=== PATIENT | male | born 1995 | race Two or more races ===

== ENCOUNTER 2019-07-24 17:36 | Emergency (ER) | payer SELFPAY ==
[~2019-07-24] VITALS: Ht 165.1 cm; Wt 54.4 kg
[2019-07-24 17:44] VITALS: BP 118/67
== END 2019-07-24 20:16 | disposition home or self-care (01) ==
LOC: ER 17:39
DX: S41.112A Laceration without foreign body of left upper arm, initial encounter (principal); X58.XXXA Exposure to other specified factors, initial encounter; Y93.89 Activity, other specified; Y99.8 Other external cause status; Y92.89 Other specified places as the place of occurrence of the external cause
CPT/HCPCS: 12001